=== PATIENT | male | born 1990 | race Caucasian/White ===

== ENCOUNTER 2024-01-11 01:09 | Emergency (ER) | payer SELFPAY ==
[2024-01-11] MEDS ORDERED: Bupivacaine 0.5% 10 ML VIAL ONE (01:23)
== END 2024-01-11 01:40 | disposition home or self-care (01) ==
LOC: BURERS 01:09
DX: K02.9 Dental caries, unspecified (principal); Z59.00 Homelessness unspecified
CPT/HCPCS: 64400; J3490